=== PATIENT | female | born 1965 | race Caucasian/White ===

== ENCOUNTER 2019-02-16 14:41 | Emergency (ER) | payer OTHER, BC ==
[2019-02-16 15:36] VITALS: BMI 29.0
[2019-02-16 15:37] VITALS: BP 142/90; PULSE 79; RESP 18; TEMP 98.2; O2SAT 96
[2019-02-16] MEDS ORDERED: TDAP Vaccine 0.5 mL Syr IM ONE (16:19)
--- NOTE | 2019-02-16 16:26 | ED PDOC ---
Arrival/HPI - General Chief Complaint: ENT Problem Time Seen by Provider: 02/16/19 15:50 Historian: Patient - History of Present Illness Narrative History of Present Illness (Text): 02/16/19 16:22 53-year-old female presents today with nasal injury. Patient states she was opening the fridge and heavy object fell and hit her on the bridge of the nose sustained an abrasion to the nose and develop bleeding coming from the nostrils bilaterally. Patient denies loss of consciousness. She denies dizziness or weakness. No chest pain or shortness of breath. No neck or back pain. Patient is unsure of her last tetanus shot. No other complaints Past Medical History - Provider Review Nursing Documentation Reviewed: Yes - Travel History Have you recently traveled outside [place] w/in the past 3 mons?: No - Infectious Disease Hx of Infectious Diseases: None - Tetanus Immunization Tetanus Immunization: Unknown - Cardiac Hx Cardiac Disorders: No - Pulmonary Hx Respiratory Disorders: No - Neurological Hx Neurological Disorder: No - HEENT Hx HEENT Disorder: No - Renal Hx Renal Disorder: No - Endocrine/Metabolic Hx Endocrine Disorders: Yes Hx Systemic Lupus Erythematosus: Yes - Hematological/Oncological Hx Blood Disorders: No - Integumentary Hx Dermatological Disorder: No - Musculoskeletal/Rheumatological Hx Musculoskeletal Disorders: Yes Hx Arthritis: Yes - Gastrointestinal Hx Gastrointestinal Disorders: Yes Hx Colitis: Yes - Genitourinary/Gynecological Hx Genitourinary Disorders: No - Psychiatric Hx Psychophysiologic Disorder: No Hx Substance Use: No - Surgical History Hx Section: Yes Hx Orthopedic Surgery: Yes (L ankle x 4) Hx Tubal Ligation: Yes Other/Comment: foot surgery - Anesthesia Hx Anesthesia: Yes Hx Anesthesia Reactions: No Hx Malignant Hyperthermia: No Family/Social History - Physician Review Nursing Documentation Reviewed: Yes Family/Social History: Unknown Family HX Smoking Status: Light Smoker < 10 Cigarettes Daily Hx Alcohol Use: No Hx Substance Use: No Allergies/Home Meds Allergies/Adverse Reactions: Allergies No Known Allergies Allergy (Verified 02/16/19 15:36) Home Medications: Home Meds Medication Instructions Recorded Confirmed Clonazepam [Klonopin] 1 mg PO HS 02/01/17 02/01/17 Cyclobenzaprine [Flexeril] 1 tab PO HS 02/01/17 02/01/17 Hydroxychloroquine Sulfate 200 mg PO BID 02/01/17 02/01/17 [Plaquenil] Venlafaxine HCl [Venlafaxine HCl 1 tab PO DAILY 02/01/17 02/01/17 ER] Review of Systems - Review of Systems Constitutional: absent: Fatigue, Fevers Eyes: absent: Vision Changes, Photophobia, Eye Pain ENT: Epistaxis, Other (nasal injury). absent: Sore Throat Respiratory: absent: SOB, Cough Cardiovascular: absent: Chest Pain Gastrointestinal: absent: Abdominal Pain, Nausea, Vomiting Musculoskeletal: absent: Back Pain, Neck Pain Skin: Other (abrasion, nose) Neurological: absent: Headache, Dizziness Psychiatric: absent: Anxiety, Depression Physical Exam Vital Signs Reviewed: Yes Vital Signs Temp Pulse Resp BP Pulse Ox 02/16/19 15:36 98.2 F 79 18 142/90 96 Temperature: Afebrile Blood Pressure: Normal Pulse: Regular Respiratory Rate: Normal Appearance: Positive for: Well-Appearing, Non-Toxic, Comfortable Pain Distress: None Mental Status: Positive for: Alert and Oriented X 3 - Systems Exam Head: Present: Contusion, Swelling, Abrasion. No: Atraumatic Pupils: Present: PERRL Extroacular Muscles: Present: EOMI Conjunctiva: Present: Normal Ears: Present: Normal, NORMAL TM Mouth: Present: Moist Mucous Membranes Pharnyx: Present: Normal Nose (External): Present: Abrasion (abrasion noted to bridge of nose), Contusion, Other (+ ecchymosis and swelling to nose; ) Nose (Internal): Present: No Active Bleeding, Engorged. No: Septal Deviation, Septal Hematoma Neck: Present: Normal Range of Motion, Trachea Midline Respiratory/Chest: Present: Clear to Auscultation, Good Air Exchange. No: Respiratory Distress, Accessory Muscle Use Cardiovascular: Present: Regular Rate and Rhythm, Normal S1, S2. No: Murmurs Upper Extremity: Present: Normal ROM Lower Extremity: Present: Normal ROM Neurological: Present: GCS=15, Speech Normal Skin: Present: Warm, Dry, Normal Color. No: Rashes Psychiatric: Present: Alert, Oriented x 3 Medical Decision Making ED Course and Treatment: 02/16/19 16:24 53-year-old female with abrasion and contusion to the nose. No loss of consciousness. Vitals stable Tetanus updated. Wound cleaned and irrigated using normal saline. Bacitracin and dressing applied Tylenol given for pain X-rays of the nasal bones: + fx Patient reassessment: Patient is nontoxic well-appearing no distress stable vital signs. All results discussed in depth with patient and family members. Patient was advised to follow-up with ENT specialist within the next 2 days advised not to blow her nose. Patient was advised if she had to sneeze sneeze with her mouth open. Patient was advised to return immediately if symptoms worsen persist or if new concerning symptoms develop Patient verbalizes understanding of discharge instructions and need for immediate followup. All aspects of this case were discussed the attending of record. Impression:nasal bone fracture Tylenol every 4 hours as needed for pain Keep the wound clean and dry and apply bacitracin twice daily Augmentin twice daily times 7 days Follow-up with the ENT specialist within the next 2 days Return immediately if symptoms worsen persist or if new concerning symptoms develop 02/16/19 18:11 - RAD Interpretation Radiology Orders: 02/16/19 16:19 NASAL BONES [RAD] Stat - Medication Orders Current Medication Orders: Acetaminophen (Tylenol 325mg Tab) 975 mg PO STAT STA Stop: 02/16/19 16:20 Tetanus/Reduced Diphtheria/Acell Pertussis (Boostrix Vaccine Inj) 0.5 ml IM .ONCE ONE Stop: 02/16/19 16:20 Disposition/Present on Arrival - Present on Arrival Any Indicators Present on Arrival: No History of DVT/PE: No History of Uncontrolled Diabetes: No Urinary Catheter: No History of Decub. Ulcer: No History Surgical Site Infection Following: None - Disposition Have Diagnosis and Disposition been Completed?: Yes Diagnosis: Nasal bone fracture, Abrasion, nose w/o infection Disposition: HOME/ ROUTINE Disposition Time: 16:26 Patient Plan: Discharge Condition: GOOD Discharge Instructions (ExitCare): Nose Fracture (DC) Additional Instructions: Tylenol every 4 hours as needed for pain Keep the wound clean and dry and apply bacitracin twice daily Augmentin twice daily times 5 days Follow-up with the ENT specialist within the next 2 days Return immediately if symptoms worsen persist or if new concerning symptoms develop Prescriptions: Amoxicillin/Clavulanate [Augmentin 875 MG-125 MG] 1 tab PO BID #10 tab Referrals: Isabella Morales MD [Primary Care Provider] - Follow up with primary Tai Young DO [[facility]] - Follow up with primary Forms: [employer] (Citizen [place]), WORK NOTE
[2019-02-16] MEDS ORDERED: Bacitracin 500 Units/gm Oint Foilpak UD ONE (17:09)
--- NOTE | 2019-02-16 17:43 | RAD ---
Date of service: 02/16/2019 PROCEDURE: Radiographs of Nasal Bones HISTORY: nasal injury r/o fx COMPARISON: None available. TECHNIQUE: Frontal and lateral radiographs of the nasal bones. FINDINGS: There is question of an acute nondisplaced fracture in the left anterior nasal bone. No acute displaced fracture in the right nasal bone. IMPRESSION: Question of acute nondisplaced fracture in the left anterior nasal bone. No acute displaced fracture in the right nasal bone. The final report is tagged to the PA review folder.
== END 2019-02-16 18:45 | disposition home or self-care (01) ==
LOC: ED 14:41
DX: S02.2XXA Fracture of nasal bones, initial encounter for closed fracture (principal); W22.8XXA Striking against or struck by other objects, initial encounter; Z23 Encounter for immunization